=== PATIENT | male | born 1985 | race Caucasian/White ===

== ENCOUNTER 2017-03-31 23:51 | Emergency (ER) | payer OTHER ==
[~2017-03-31] VITALS: Ht 177.8 cm; Wt 74.8 kg
[2017-03-31] MEDS ORDERED: NOHOMEMEDICATIONS (23:57)
[2017-04-01] MEDS ORDERED: ZOFRAN ODT4 MG PO (01:09)
[2017-04-01] MEDS ORDERED: ACETAMINOPHEN-1 EAC1 PO (01:09)
[2017-04-01] MEDS ORDERED: IBUPROFEN 600600 M1 PO (01:09)
== END 2017-04-01 01:24 | disposition home or self-care (01) ==
LOC: ER 23:51
DX: J11.1 Influenza due to unidentified influenza virus with other respiratory manifestations (principal)